=== PATIENT | male | born 1975 | race Caucasian/White ===

== ENCOUNTER 2018-07-20 10:21 | Emergency (ER) | payer SELFPAY ==
--- NOTE | 2018-07-20 11:18 | RAD ---
LEFT SHOULDER THREE VIEWS: History: 42-year-old male with history of left shoulder injury after lifting weights two weeks ago. FINDINGS: No evidence for acute fracture or dislocation or other significant acute osseous abnormality. IMPRESSION: Unremarkable left shoulder. POS: [facility]
[2018-07-20] MEDS ORDERED: Ketorolac Tromethamine 30 MG/ML VIAL ONE (13:23)
== END 2018-07-20 13:43 | disposition home or self-care (01) ==
LOC: ERS 10:21
DX: M25.512 Pain in left shoulder (principal); X50.0XXA Overexertion from strenuous movement or load, initial encounter
CPT/HCPCS: 96372; J1885

== ENCOUNTER 2018-08-31 13:31 | Outpatient (CLI) | payer OTHER ==
--- NOTE | 2018-08-31 16:25 | RAD ---
LEFT SHOULDER ARTHROGRAM: 08/31/18 INDICATION: Left shoulder pain and impingement syndrome. TECHNIQUE: Informed consent was obtained. Preprocedure extruder operator horizontal images were obtained of the left shoulder. Site adi overton the left shoulder was prepped and draped in the usual sterile fashion. Buffered 1% lidocaine w as administered overlying the subcutaneous tissues. Under fluoroscopic guidance, 22 gauge spinal need le was guided down into the glenohumeral joint. I personally injected the left glenohumeral joint wit h a dilute gadolinium solution. The patient tolerated the injection without difficulty. FINDINGS: There is changes of an os acromiale. There is mild AC joint osteoarthrosis. No acute osseous abnormal ity is evident. IMPRESSION: Successful left shoulder arthrogram. POS: [facility]
--- NOTE | 2018-08-31 17:33 | MRI ---
MR ARTHROGRAM OF THE LEFT SHOULDER: Date: 08/31/18 INDICATION: Left shoulder pain. TECHNIQUE: Multiplanar, multisequence MR images were obtained of the left shoulder following introduction of a d ilute Gadolinium solution. Please see the separately dictated left shoulder arthrogram for injection technique. FINDINGS: There is a SLAP tear involving the left shoulder extending from approximately the 3 o'clock position through the 10 o'clock position. There is no evidence of tear extension into the biceps anchor comple x. The biceps tendon is located. There is a Type II acromion. There is mild AC joint osteoarthrosis. The rotator cuff is intact. The inferior glenohumeral labral ligamentous complex is intact. The gleno humeral articular surface appears within normal limits. IMPRESSION: 1. Large SLAP tear extending from approximately the 3 o'clock through the 10 o'clock position of the left shoulder. 2. Mild left AC joint osteoarthrosis. 3. The rotator cuff is intact. POS: [facility]
== END 2018-08-31 13:32 | disposition home or self-care (01) ==
LOC: RAD 13:31
PROVIDERS: ATTEND Orthopaedic Surgery
DX: M75.42 Impingement syndrome of left shoulder (principal); M19.012 Primary osteoarthritis, left shoulder; S43.432A Superior glenoid labrum lesion of left shoulder, initial encounter
CPT/HCPCS: 23350